=== PATIENT | female | born 2000 ===

== ENCOUNTER 2024-07-16 03:27 | Emergency (ER) | payer MEDICAID, OTHER ==
[~2024-07-16] VITALS: Ht 149.9 cm; Wt 56.7 kg
--- NOTE | 2024-07-16 03:33 | ED.PDOC ---
Eye-HPI HPI Comments PATIENT COMES WITH C/C OF RIGHT EYE PAIN X 1 WEEK. PATIENT REPORTS COMING HOME FROM WORK WITH EYE PAIN AND NOTICED DISCHARGE AND IRRITATION, REMOVED CONTACTS. PAIN AND REDNESS HAVE GOTTEN PROGRESSIVELY WORSE. 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 Information Source: Patient Constitutional: denies: chills, diaphoresis, fatigue, fever, malaise, sweats, weakness, others EENTM: reports: ear discharge, eye pain, eye redness; denies: blurred vision, double vision, ear bleeding, ear drainage, ear pain, ear ringing, hearing loss, mouth pain, mouth swelling, nasal discharge, nose bleeding, nose congestion, nose pain, photophobia, tearing, throat pain, throat swelling, voice changes, others Respiratory: denies: cough, hemoptysis, orthopnea, SOB at rest, shortness of breath, SOB with excertion, stridor, wheezing, others Cardiovascular: denies: chest pain, dizzy spells, diaphoresis, Dyspnea on exertion, edema, irregular heart beat, left arm pain, lightheadedness, palpitations, PND, syncope, others Gastrointestinal: denies: abdomen distended, abdominal pain, blood streaked bowels, constipated, diarrhea, dysphagia, difficulty swallowing, hematemesis, melena, nausea, poor appetite, poor fluid intake, rectal bleeding, rectal pain, vomiting, others Genitourinary: denies: abnormal vagina bleeding, burning, dyspareunia, dysuria, flank pain, frequency, hematuria, incontinence, pain, , vagina discharge, urgency, others Neurological: denies: dizziness, fainting, headache, left sided numbness, left sided weakness, numbness, paresthesia, pre-existing deficit, right sided numbness, right sided weakness, seizure, speech problems, tingling, tremors, weakness, others Musculoskeletal: denies: back pain, gout, joint pain, joint swelling, muscle pain, muscle stiffness, neck pain, others Integumetry: denies: bruises, change in color, change in hair/nails, dryness, laceration, lesions, lumps, rash, wounds, others Allergic/Immunocompromised: denies: Difficulty Healing, Frequent Infections, Hives, Itching, others Hematologic/Lymphatic: denies: anemia, blood clots, easy bleeding, easy bruising, swollen glands, others Endocrine: denies: excessive hunger, excessive sweating, excessive thirst, excessive urination, flushing, intolerance to cold, intolerance to heat, unexplained weight gain, unexplained weight loss, others Psychiatric: denies: anxiety, bipolar disorder, depression, hopeless, panic disorder, schizophrenia, sleepless, suicidal, others Physical Exam General Appearance: No Apparent Distress, Normal HEENT: Pharynx Normal, TMs Normal, Other (RIGHT EYE HYPEREMIA CLEAR DRAINAGE NOTED OBVIOUS FOREIGN BODY) Neck: Full Range of Motion, Non-Tender Respiratory: Lungs Clear, No Respiratory Distress, Normal Breath Sounds Cardiovascular: No Murmur, Normal Peripheral Pulses, Regular Rate/Rhythm Breast Exam: Deferred Gastrointestinal: Non Tender, Soft Genitalia: Deferred Pelvic: Deferred Rectal: Deferred Extremities: No calf tenderness, Normal inspection, Normal range of motion Musculoskeletal : Apperance: Normal Neurologic: Alert, 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 Was a procedure done?: Yes Sedation Sedation?: No Informed consent obtained: Yes Other Procedure Procedure WOOD'S LAMP RIGHT EYE EXAM Indication POSSIBLE FOREIGN BODY Anesthetic TETRACAINE 1% 1 DROP Prep FLUORESCEIN Success NOTED CORNEAL ABRASION 12 O'CLOCK POSITION. NO NOTED FOREIGN BODY, ULCERATION, OR LACERATION NO GLOBE LEAKAGE OR PENETRATION Informed consent obtained: Yes Risks, benefits, and alternati: Yes EENT DIFF Eye: Corneal Ulceration, Foreign Body-Conjunctiva, Foreign Body-Corneal, Foreign Body-Intraocular, Foreign Body-Lid, Globe Rupture, Hordeolum (stye), Iritis/Uveitis, Orbital Cellulits X-Ray, Labs, Meds, VS Vital Signs Date Time Temp Pulse Resp B/P (MAP) Pulse Ox O2 Delivery O2 Flow Rate FiO2 07/16/24 03:44 98.6 87 12 123/69 (87) 95 98.6 X-Ray, Labs, Meds, VS Comment SEE PROCEDURE NOTE. SCRIPT MOXIFLOXACIN 1 DROP 3 TIMES A DAY X7 DAYS. ADVISED ON SIDE EFFECTS TAKE MEDICATIONS PRESCRIBED. ADVISED NOT TO WEAR CONTACTS WERE HER GLASSES WHILE WITH THE ABRASION FOR AT LEAST 10 DAYS. YOUR PCP OR OPHTHALMOLOGY NECESSARY. ER RETURN PRECAUTIONS GIVEN PATIENT INDICATES UNDERSTANDING AGREES WITH DISCHARGE PLAN OF CARE. Time of 1ST Reevaluation: 03:32 Reevaluation 1ST: Unchanged Time of 2ND Reevaluation: 04:24 Reevaluation 2ND: Improved Patient Education/Counseling: Diagnosis, Treatment, Prognosis, Need For Follow Up Family Education/Counseling: Diagnosis, Treatment, Prognosis, Need For Follow Up Departure 1 Departure Time of Disposition: 04:24 Impression: Primary Impression: Corneal abrasion due to contact lens Qualified Codes: H18.821 - Corneal disorder due to contact lens, right eye Disposition: 01 HOME / SELF CARE / HOMELESS Condition: Stable e-Prescriptions Moxifloxacin Hydrochloride (Moxifloxacin) 0.5 % Johan 1 DROP RIGHTEYE TID for 7 Days, #3 ML Prov: MCKENNA FIORE 07/16/24 Discharged With: Self Critical Care Note Critical Care Time?: No Stability Stability form required: No MCKENNA FIORE July 16, 2024 03:32
[2024-07-16 03:44] VITALS: BP 123/64; PULSE 87; RESP 12; TEMP 98.6; O2SAT 95
[2024-07-16] MEDS: FLUORESCEIN SOD OPTH TEST STRIP RIGHTEYE ONE (04:07)
[2024-07-16] MEDS: TETRACAINE HCL 0.5% OPTH(EYE) SOLN 4ML RIGHTEYE ONE (04:07)
[2024-07-16] MEDS ORDERED: MOXI0.5D9 RIGHTEYE (04:17)
== END 2024-07-16 04:37 | disposition home or self-care (01) ==
LOC: ER 03:27
DX: H18.821 Corneal disorder due to contact lens, right eye (principal)